=== PATIENT | female | born 1975 | race Caucasian/White ===

== ENCOUNTER 2022-08-09 12:32 | Observation (INO) ==
[2022-08-09] MEDS ORDERED: Melatonin 3 MG TABLET PO PRN (18:06)
[2022-08-09] MEDS ORDERED: Ondansetron 4 MG/2 ML VIAL IVP PRN (18:06)
[2022-08-09] MEDS: Acetaminophen 325 MG TABLET PO PRN (19:13)
[2022-08-09] MEDS ORDERED: *HR* LORazepam 0.5 MG TABLET PO PRN (19:28)
[2022-08-10 04:29] LABS: Albumin 4.4 g/dL (3.5-5.7); Albumin/Globulin Ratio 1.2 (1.1-2.2); Bilirubin,Total 0.3 mg/dL (0.3-1.0); Globulin 3.6 g/dL (2.4-3.5); Magnesium 1.9 mg/dL (1.6-2.6); Potassium 3.6 mEq/L (3.5-5.1)
[2022-08-10] MEDS: Acetaminophen 325 MG TABLET PO PRN (05:53)
[2022-08-10 06:51] VITALS: BP 105/63; PULSE 99; TEMP 97.5; O2SAT 94
[2022-08-10] MEDS ORDERED: Venlafaxine XR (24 HR) 37.5 MG CAP.ER.24H PO SCH (09:00)
[2022-08-10] MEDS ORDERED: hydroCHLOROthiazide 25 MG TABLET PO SCH (09:00)
[2022-08-10] MEDS ORDERED: Metoprolol XL (24 HR) Succ 25 MG TAB.ER.24H PO SCH (09:00)
== END 2022-08-10 11:47 | disposition home or self-care (01) ==
LOC: 3BNU
PROVIDERS: ADMIT Internal Medicine; ATTEND Internal Medicine